=== PATIENT | male | born 1950 | race Caucasian/White ===

== ENCOUNTER 2025-05-30 06:48 | Day surgery (SDC) | payer MEDICARE, BC ==
[2025-05-30] MEDS ORDERED: Propofol 200 MG/20 ML SDV ONE ×2 (07:02→07:59)
[2025-05-30] MEDS ORDERED: fentaNYL 50 MCG/ML SDV ONE (07:02)
[2025-05-30] MEDS: Lactated Ringers 1,000 ML IV SCH (07:34)
== END 2025-05-30 09:28 | disposition home or self-care (01) ==
LOC: JP.SDS 06:48 → EDBD 08:30 → JP.SDS 09:28
PROVIDERS: ATTEND Surgery
DX: Z12.11 Encounter for screening for malignant neoplasm of colon (principal); Z86.0100 Personal history of colon polyps, unspecified
CPT/HCPCS: G0121; J2704; J3010; J7120; 00812-QZ

== ENCOUNTER 2025-06-22 09:46 | Emergency (ER) | payer MEDICARE, BC ==
[2025-06-22] MEDS ORDERED: Sodium Chloride 0.9% 10 ML Syringe FLUSH PRN (11:08)
[2025-06-22 11:34] LABS: BASOPHILS PERCENT AUTO 0.3 % (0.1-1.3); EOSINOPHILS PERCENT AUTO 0.3 % (0.0-5.4); IMMATURE GRAN PERCENT AUTO 0.3 % (0.0-0.7); LYMPHOCYTES ABSOLUTE AUTO 0.71 K/uL (0.8-3.3); LYMPHOCYTES PERCENT AUTO 23.1 % (11.4-47.7); MONOCYTES ABSOLUTE AUTO 0.44 K/uL (0.20-0.90); MONOCYTES PERCENT AUTO 14.3 % (3.3-12.6); NEUTROPHILS ABSOLUTE AUTO 1.90 K/uL (1.0-7.6); NEUTROPHILS PERCENT AUTO 61.7 % (40.0-78.1); PLATELET COUNT,PLT 165 K/uL (130-375); RED BLOOD CELL COUNT 5.45 M/uL (4.14-5.76); WHITE BLOOD CELL COUNT,WBC 3.1 K/uL (3.2-11.0)
[2025-06-22] MEDS: Lactated Ringers 1,000 ML IV ONE (11:34)
[2025-06-22 11:36] LABS: BASOPHILS ABSOLUTE AUTO 0.01 K/uL (0.00-0.10); EOSINOPHILS ABSOLUTE AUTO 0.01 K/uL (0.00-0.40); IMMATURE GRAN ABSOLUTE AUTO 0.01 K/uL (0.00-0.23)
[2025-06-22 11:58] LABS: BLOOD UREA NITROGEN,BUN 20.0 mg/dL (7-18); CARBON DIOXIDE,CO2 29.0 mmol/L (21-32); CHLORIDE,CL 95.0 mmol/L (100-108); CREATININE 1.2 mg/dL (0.8-1.3); EST CRCL DRUG DOSING (CG) 50.21 mL/min; ESTIMATED GFR 64.0 mL/min (>60); GLUCOSE RANDOM 118.0 mg/dL (74-106); POTASSIUM,K 3.7 mmol/L (3.6-5.2); SODIUM,NA 133.0 mmol/L (140-148)
[2025-06-22 12:10] LABS: CORONAVIRUS COVID-19 NAA NEGATIVE (NEGATIVE); INFLUENZA A NAA POSITIVE (NEGATIVE); INFLUENZA B NAA NEGATIVE (NEGATIVE); RESPIRATORY SYNCYTIAL VIR NAA NEGATIVE (NEGATIVE)
== END 2025-06-22 13:10 | disposition home or self-care (01) ==
LOC: JP.ED 09:46
DX: J10.1 Influenza due to other identified influenza virus with other respiratory manifestations (principal); I10 Essential (primary) hypertension; Z79.899 Other long term (current) drug therapy
CPT/HCPCS: 36415; 80048; 83605; 85025; 87637; 96360; 99284; A9270; J7120